=== PATIENT | female | born 1940 | race Two or more races ===

== ENCOUNTER 2022-06-16 15:59 | Emergency (ER) | payer MEDICARE, OTHER ==
[~2022-06-16] VITALS: Ht 165.1 cm; Wt 72.6 kg
[2022-06-16] MEDS ORDERED: KETOROLAC TROMETHAMINE 15 MG INJ ONE (16:33)
[2022-06-16 16:40] LABS: HEMATOCRIT 29.2 % (31.2-41.9); MEAN CORPUSCULAR HEMOGLOBIN 33.6 uug (24.7-32.8); MEAN CORPUSCULAR VOLUME 100.3 fL (75.5-95.3); PLATELET COUNT (AUTO) 202 K/uL (179-408)
[2022-06-16 16:47] LABS: CARBON DIOXIDE 32 mmol/L (21-32); CHLORIDE 98 mmol/L (98-107); CREATININE 4.3 mg/dL (0.6-1.3); GLUCOSE 115 mg/dL (74-106); POTASSIUM 3.4 mmol/L (3.5-5.1); UREA NITROGEN, BLOOD 27 mg/dL (7-18)
[2022-06-16] MEDS ORDERED: MORPHINE SULFATE 4 MG/1 ML DISP.SYRIN ONE (17:10)
[2022-06-16] MEDS ORDERED: FLUO20CA42 PO (17:13)
[2022-06-16] MEDS ORDERED: NEPHRO-VITE PO (17:13)
[2022-06-16] MEDS ORDERED: ASPI81TA31 PO (17:13)
[2022-06-16] MEDS ORDERED: FESO PO (17:13)
[2022-06-16] MEDS ORDERED: ONDANSETRON 4 MG/2 ML VIAL ONE (17:43)
[2022-06-16] MEDS ORDERED: ONDANSETRON 4 MG/2 ML VIAL IV ONE (17:45)
--- NOTE | 2022-06-16 19:15 | NUR ---
change of shift report from Jennifer GUO
--- NOTE | 2022-06-16 19:45 | NUR ---
Patient is a/ox4, NAD noted
--- NOTE | 2022-06-16 20:15 | NUR ---
called [facility] ambulance for transportation. no unit available at this time
--- NOTE | 2022-06-16 20:20 | NUR ---
called [facility] ambulance. ETA 90 mins
--- NOTE | 2022-06-16 21:39 | NUR ---
Patient discharged to home in stable condition via [facility]. Written and verbal after care instructions given. Patient verbalizes understanding of instructions. Stressed follow up or return to ER for worsening s/s. Patient is a/ox4, NAD noted. Patient is able to walk with steady gait
--- NOTE | 2022-06-16 21:39 | NUR ---
[facility] ambulance at bedside for transportation
[2022-06-16 21:41] VITALS: BP 145/71
== END 2022-06-16 21:41 | disposition home or self-care (01) ==
LOC: ER 15:59
DX: R11.0 Nausea (principal); I12.0 Hypertensive chronic kidney disease with stage 5 chronic kidney disease or end stage renal disease; N18.6 End stage renal disease; Z99.2 Dependence on renal dialysis; E78.5 Hyperlipidemia, unspecified; Z88.0 Allergy status to penicillin; Z79.82 Long term (current) use of aspirin; R94.31 Abnormal electrocardiogram [ECG] [EKG]; J44.9 Chronic obstructive pulmonary disease, unspecified
CPT/HCPCS: 36415; 70450; 71045; 84484; 85025; 93005; J1885; J2270; J2405